=== PATIENT | female | born 1945 | race Caucasian/White ===

== ENCOUNTER 2019-10-19 15:07 | Emergency (ER) | payer OTHER ==
[~2019-10-19] VITALS: Ht 170.2 cm; Wt 93.4 kg
[2019-10-19 15:13] VITALS: Ht 170.2 cm; Wt 93.4 kg
[2019-10-19 19:06] VITALS: BP 157/80
== END 2019-10-19 19:06 | disposition home or self-care (01) ==
LOC: ED 15:07
DX: S06.0X0A Concussion without loss of consciousness, initial encounter (principal); S13.4XXA Sprain of ligaments of cervical spine, initial encounter; I10 Essential (primary) hypertension; K21.9 Gastro-esophageal reflux disease without esophagitis; Z88.1 Allergy status to other antibiotic agents; Z88.2 Allergy status to sulfonamides; W01.198A Fall on same level from slipping, tripping and stumbling with subsequent striking against other object, initial encounter; Y93.89 Activity, other specified; Y92.89 Other specified places as the place of occurrence of the external cause; Y99.8 Other external cause status